=== PATIENT | female | born 1995 | race African-American/Black ===

== ENCOUNTER 2020-03-26 17:32 | Emergency (ER) | payer MEDICAID ==
[~2020-03-26] VITALS: Ht 160 cm; Wt 69.0 kg
[2020-03-26 17:43] VITALS: BP 118/78
== END 2020-03-26 18:24 | disposition home or self-care (01) ==
LOC: ER 17:59
DX: O99.519 Diseases of the respiratory system complicating pregnancy, unspecified trimester (principal); J32.9 Chronic sinusitis, unspecified; O26.899 Other specified pregnancy related conditions, unspecified trimester; R03.0 Elevated blood-pressure reading, without diagnosis of hypertension; Z3A.00 Weeks of gestation of pregnancy not specified
CPT/HCPCS: 81025; 99283

== ENCOUNTER 2022-11-14 18:49 | Emergency (ER) | payer MEDICAID ==
[~2022-11-14] VITALS: Ht 160 cm; Wt 66.0 kg
[2022-11-14 18:52] VITALS: BP 126/53
[2022-11-14 20:10] LABS: CLARITY URINE CLEAR (CLEAR); COLOR URINE YELLOW (YELLOW); KETONES URINE NEGATIVE (NEGATIVE); LEUKOCYTE ESTERASE URINE 2+ (NEGATIVE); NITRITE URINE NEGATIVE (NEGATIVE); OCCULT BLOOD URINE 2+ (NEGATIVE); PH URINE 6.5 (4.5-8.0); PROTEIN URINE NEGATIVE (NEGATIVE); SPECIFIC GRAVITY URINE 1.012 (1.005-1.030)
[2022-11-14] MEDS ORDERED: CEFTRIAXONE SODIUM 500 MG/VIAL IM ONE (20:30)
[2022-11-14] MEDS ORDERED: LIDOCAINE HCL 1% 20ML VIAL (Pyxis) INJ INFIL ONE (20:30)
[2022-11-14] MEDS ORDERED: CEPH500C2 PO (21:18)
[2022-11-17 08:08] LABS: NEISSERIA GONORRHOEAE NAA Positive (Negative)
== END 2022-11-14 21:30 | disposition home or self-care (01) ==
LOC: ER 18:49
DX: N39.0 Urinary tract infection, site not specified (principal); Z20.2 Contact with and (suspected) exposure to infections with a predominantly sexual mode of transmission
CPT/HCPCS: 81003; 81025; 87491; 87591; 96372; 99283; J0696; J3490; Z7610

== ENCOUNTER 2023-08-06 15:03 | Emergency (ER) | payer MEDICAID, OTHER ==
[~2023-08-06] VITALS: Ht 165.1 cm; Wt 72.0 kg
[~2023-08-06 15:03] MED LIST: CEPH500C2 PO
[2023-08-06 15:07] VITALS: BP 130/79; PULSE 101; RESP 20; TEMP 98.2; O2SAT 98
[2023-08-06] MEDS ORDERED: ONDANSETRON 4MG ODT PO STA (15:12)
[2023-08-06] MEDS ORDERED: MAGNESIUM/ALUMINUM HYDROXIDE/SIMETHICONE 30ML UDC PO STA (15:12)
[2023-08-06] MEDS ORDERED: FAMOTIDINE 20MG TABLET PO ONE (15:15)
[2023-08-06] MEDS ORDERED: VISCOUS LIDOCAINE 2% 15 ML UDC MM NR (15:30)
[2023-08-06 15:59] LABS: CLARITY URINE CLOUDY (CLEAR); COLOR URINE YELLOW (YELLOW); GLUCOSE URINE NEGATIVE (NEGATIVE); KETONES URINE 2+ (NEGATIVE); LEUKOCYTE ESTERASE URINE NEGATIVE (NEGATIVE); NITRITE URINE NEGATIVE (NEGATIVE); OCCULT BLOOD URINE TRACE (NEGATIVE); PH URINE 5.5 (4.5-8.0); PROTEIN URINE TRACE (NEGATIVE); SPECIFIC GRAVITY URINE 1.025 (1.005-1.030); UROBILINOGEN URINE 0.2 E.U./dL (0.2-1.0)
[2023-08-06 16:02] LABS: HEMATOCRIT. 38.6 % (36.0-48.0); MEAN CORPUSCULAR HEMOGLOBIN 31.4 pg (28.0-32.0); MEAN CORPUSCULAR HGB CONC 33.7 g/dL (31.0-37.0); MEAN CORPUSCULAR VOLUME 93.2 fL (81.0-99.0); PLATELET 190 x1000/uL (130-400); RED BLOOD CELL COUNT 4.14 mill/uL (4.2-5.4); RED CELL DISTRIBUTION WIDTH 13.4 % (11.6-14.6); WHITE BLOOD COUNT 7.8 x1000/uL (4.5-11.0)
[2023-08-06 16:03] LABS: DIFFERENTIAL COMMENT 1
[2023-08-06 16:14] LABS: PLATELET ESTIMATE NORMAL
[2023-08-06 16:15] LABS: GIANT PLATELETS 1+
[2023-08-06 16:16] LABS: ALANINE AMINOTRANSFERASE 21 IU/L (10-49); ALBUMIN 4.7 g/dL (3.2-4.8); ASPARTATE AMINOTRANSFERASE 25 IU/L (<34); BILIRUBIN TOTAL 0.8 mg/dL (0.1-1.0); CALCIUM 9.4 mg/dL (8.7-10.4); CARBON DIOXIDE 24 mEq/L (21-32); CHLORIDE 106 mEq/L (98-107); CREATININE 0.5 mg/dL (0.6-1.0); GLUCOSE 79 mg/dL (70-105); POTASSIUM 3.5 mEq/L (3.5-5.1); PROTEIN TOTAL 7.3 g/dL (6.0-8.3); SODIUM 138 mEq/L (136-145); UREA NITROGEN BLOOD 8 mg/dL (9-23)
[2023-08-06 16:19] LABS: BACTERIA URINE 2+; RBC URINE 0-2 /hpf (0-2); SQUAMOUS EPITHELIAL CELL URINE 2+ /lpf (RARE/1+)
[2023-08-06] MEDS ORDERED: ONDANSETRON 4MG ODT PO NR (18:30)
[2023-08-06] MEDS ORDERED: MAGNESIUM/ALUMINUM HYDROXIDE/SIMETHICONE 30ML UDC PO NR (18:30)
[2023-08-06] MEDS ORDERED: FAMOTIDINE 20MG TABLET PO NR (18:30)
== END 2023-08-06 19:27 | disposition home or self-care (01) ==
LOC: ER 15:03
DX: B34.9 Viral infection, unspecified (principal); R10.9 Unspecified abdominal pain
CPT/HCPCS: 36415; 80053; 81003; 81025; 85025; 99284; Q0162

== ENCOUNTER 2024-05-02 14:03 | Emergency (ER) | payer OTHER ==
[~2024-05-02] VITALS: Ht 160 cm; Wt 76.2 kg
[2024-05-02 14:07] VITALS: O2SAT 100
[2024-05-02 14:28] VITALS: BP 144/60; PULSE 100; RESP 16; TEMP 98.4; O2SAT 100
[2024-05-02] MEDS ORDERED: ACET325T52 MT (16:10)
== END 2024-05-02 16:27 | disposition home or self-care (01) ==
LOC: ER 14:03
DX: S80.911A Unspecified superficial injury of right knee, initial encounter (principal); W18.39XA Other fall on same level, initial encounter; Y93.89 Activity, other specified; Y92.89 Other specified places as the place of occurrence of the external cause; Y99.8 Other external cause status
CPT/HCPCS: 73562; 99283

== ENCOUNTER 2025-03-01 15:27 | Emergency (ER) | payer BC, OTHER ==
[~2025-03-01] VITALS: Ht 160 cm; Wt 72.0 kg
[~2025-03-01 15:27] MED LIST changes: +ACET-3800 MT
[2025-03-01 15:30] VITALS: O2SAT 99
[2025-03-01 15:33] VITALS: TEMP 36.6; O2SAT 100
[2025-03-01] MEDS ORDERED: IBUP-2029 MT (16:57)
[2025-03-01] MEDS ORDERED: LIDO-53 TP (16:57)
[2025-03-01 17:12] VITALS: BP 101/66; PULSE 64; RESP 18
[2025-03-01] MEDS: KETOROLAC 15MG/ML VIAL IM ONE (17:12)
[2025-03-01] MEDS: LIDOCAINE 5% PATCH TOP SCH (17:12)
== END 2025-03-01 17:13 | disposition home or self-care (01) ==
LOC: ER 15:27
DX: M25.511 Pain in right shoulder (principal); M54.2 Cervicalgia; Z79.899 Other long term (current) drug therapy
CPT/HCPCS: 99283; 81025; 73030; 96372; J1885